=== PATIENT | female | born 1990 | race Caucasian/White ===

== ENCOUNTER → 2022-12-02 | Outpatient (CLI) | payer OTHER ==
[~2022-12-02] MED LIST: AUGM12TA3 PO; CIPR500T89 PO; DOCU5LIQ OR; IBUP200C PO; MOM30SS OR; TYLE325T5 PO
== END ==
LOC: M WHC 12:58
PROVIDERS: ATTEND Physician Assistant
DX: E05.20 Thyrotoxicosis with toxic multinodular goiter without thyrotoxic crisis or storm (principal)

== ENCOUNTER → 2022-12-02 | Outpatient (CLI) | payer OTHER ==
[2022-12-02 15:37] LABS: BASO # 0.1 10^3/uL (0.0-0.2); BASO % 0.7 % (0.0-1.0); EOS # 0.4 10^3/uL (0.0-0.5); EOS % 3.7 % (0.0-3.0); HEMATOCRIT 44.1 % (36.0-47.0); HEMOGLOBIN 14.9 g/dl (12.0-15.5); LYMPH # 2.8 10^3/uL (1.5-5.0); LYMPH % 26.3 % (24.0-44.0); MEAN CORPUSCULAR HEMOGLOBIN 31.1 pg (27.0-33.0); MEAN CORPUSCULAR HGB CONC 33.8 g/dl (32.0-36.5); MEAN CORPUSCULAR VOLUME 92.1 fl (80.0-96.0); MONO # 0.8 10^3/uL (0.0-0.8); NEUTROPHILS # 6.7 10^3/uL (1.5-8.5); PLATELET COUNT, AUTOMATED 312 10^3/uL (150-450); RED BLOOD COUNT 4.79 10^6/uL (4.00-5.40); WHITE BLOOD COUNT 10.8 10^3/uL (4.0-10.0)
[2022-12-02 15:43] LABS: ALBUMIN 4.2 G/DL (3.2-5.2); ALKALINE PHOSPHATASE 46 U/L (46-116); ALT/SGPT 9 U/L (7.0-40); AST/SGOT < 8 U/L (<34); BILIRUBIN,TOTAL 0.9 MG/DL (0.3-1.2); BLOOD UREA NITROGEN 9 MG/DL (9-23); CALCIUM LEVEL 9.6 MG/DL (8.5-10.1); CARBON DIOXIDE LEVEL 26 MMOL/L (20-31); CHLORIDE LEVEL 105 MMOL/L (98-107); CHOLESTEROL LEVEL 146 MG/DL (<200); CHOLESTEROL RISK RATIO 2.55 (<5); CREATININE FOR GFR 0.68 MG/DL (0.55-1.30); GLOMERULAR FILTRATION RATE > 60.0 (>60); GLUCOSE, FASTING 76 MG/DL (60-100); HDL CHOLESTEROL 57.1 MG/DL (>40); LDL CHOLESTEROL 76.3 MG/DL (<100); NON-HDL-C 88.9 MG/DL; POTASSIUM SERUM 5.2 MMOL/L (3.5-5.1); SODIUM LEVEL 139 MMOL/L (136-145); TOTAL PROTEIN 6.8 G/DL (5.7-8.2); TRIGLYCERIDES LEVEL 63 MG/DL (<150)
[2022-12-02 15:44] LABS: FREE T4 1.15 NG/DL (0.89-1.76)
[2022-12-02 15:45] LABS: FOLLICLE STIMULATING HORMONE 3.8 mIU/ML; LUTEINIZING HORMONE 6.4 mIU/ML; THYROID STIMULATING HORMONE 2.286 uIU/ML (0.55-4.78)
[2022-12-02 16:08] LABS: THYROID PEROXIDASE ANTIBODY > 1300.0 U/ML (<60.0)
== END ==
LOC: M PLALAB 13:02
PROVIDERS: ATTEND Physician Assistant
DX: E05.80 Other thyrotoxicosis without thyrotoxic crisis or storm (principal); Z13.220 Encounter for screening for lipoid disorders; Z13.29 Encounter for screening for other suspected endocrine disorder

== ENCOUNTER → 2023-05-23 | Outpatient (CLI) | payer OTHER ==
[2023-05-23 16:21] LABS: URIC ACID 5.4 MG/DL (3.1-7.8)
[2023-05-23 16:23] LABS: C REACTIVE PROTEIN QUANTITATIV < 0.40 MG/DL (<1.0)
[2023-05-23 16:24] LABS: FREE T4 1.11 NG/DL (0.89-1.76)
[2023-05-23 16:26] LABS: FOLATE 10.27 NG/ML (>5.4); RHEUMATOID FACTOR QUANT < 3.5 IU/ML (<14); THYROID STIMULATING HORMONE 3.304 uIU/ML (0.55-4.78); VITAMIN B12 LEVEL 429 PG/ML (211-911)
== END ==
LOC: M PLALAB 14:12
PROVIDERS: ATTEND Physician Assistant
DX: M79.7 Fibromyalgia (principal)

== ENCOUNTER → 2024-04-04 | Outpatient (REF) | payer OTHER | LOC: M LAB REF 17:33 | PROVIDERS: ATTEND Otolaryngology | DX: M35.00 Sjogren syndrome, unspecified (principal) ==